=== PATIENT | female | born 1965 | race Two or more races ===

== ENCOUNTER 2022-11-29 09:06 | Day surgery (SDC) | payer MEDICAID ==
[~2022-11-29] VITALS: Ht 162.6 cm; Wt 78.1 kg
[~2022-11-29 09:06] MED LIST: NO HOME MEDS
[2022-11-29] MEDS ORDERED: CETI10TA19 PO (09:24)
[2022-11-29] MEDS ORDERED: TRAZ-251 PO (09:24)
[2022-11-29] MEDS ORDERED: IBUP-1985 PO (09:24)
[2022-11-29] MEDS ORDERED: METR70GE5 VG (09:24)
[2022-11-29] MEDS ORDERED: BACL-11 PO (09:24)
[2022-11-29 09:40] VITALS: BP 129/95
[2022-11-29] MEDS ORDERED: fentaNYL/PF 50MCG/1 ML 2ML syringe ONE (10:07)
[2022-11-29] MEDS ORDERED: MIDAZolam 1 MG/ML 5ML VIAL ONE (10:08)
[2022-11-29 10:35] VITALS: BP 110/71
[2022-11-29 10:45] VITALS: BP 119/74
[2022-11-29 10:55] VITALS: BP 124/77
[2022-11-29 11:05] VITALS: BP 107/70
== END 2022-11-29 11:10 | disposition home or self-care (01) ==
LOC: GI LAB 09:06
PROVIDERS: ATTEND Internal Medicine Gastroenterology
DX: Z12.11 Encounter for screening for malignant neoplasm of colon (principal); D12.3 Benign neoplasm of transverse colon; K62.6 Ulcer of anus and rectum; K57.30 Diverticulosis of large intestine without perforation or abscess without bleeding; K64.8 Other hemorrhoids; Z86.010 Personal history of colon polyps; Z80.0 Family history of malignant neoplasm of digestive organs
CPT/HCPCS: 45380; 45385; 99152; C1889; J2250; J3010; J7030; Z7512; 99153; A4620

== ENCOUNTER 2025-05-17 14:20 | Outpatient (CLI) | payer MEDICAID ==
[~2025-05-17 14:20] MED LIST changes: +BACL-11 PO; +CETI10TA19 PO; +IBUP600T52 PO; +METR70GE27 VG; +TRAZ-251 PO
--- NOTE | 2025-05-17 15:13 | ELECTROCARDIOGRAPH REPORT ---
[facility] Test Date: 2025-05-17 Test Time: 15:11:34 Pat Name: SRIRAM MASCORRO Department: [facility]-PRE-OP Patient ID: [facility]-[id number] Room: Gender: F Baker Paint: VENKATESH : 1965 Requested By: JEANINE ORTIZ Order Number: [id number] Reading MD: Dr. MATIAS Trujillo Measurements Intervals [place] Rate: 63 P: -22 TN: 109 QRS: 59 QRSD: 80 T: 56 QT: 422 QTc: 433 Interpretive Statements Sinus rhythm Short TN interval Electronically Signed On 05-17-2025 16:02:[address] MATIAS Trujillo Please click the below link to view image of tracing.
[2025-05-17] MEDS ORDERED: albuterol inhaler INH (15:31)
[2025-05-17] MEDS ORDERED: LEVO50TA8 PO (15:31)
[2025-05-17] MEDS ORDERED: DEC4T PO (15:31)
[2025-05-17 15:35] LABS: MEAN PLATELET VOLUME 8.6 FL (7.4-10.4); PRE OP HEMATOCRIT 37.5 % (35.0-45.0); PRE OP HEMOGLOBIN 12.7 g/dL (12.0-16.0); PRE OP PLATELET COUNT 205 X10'3 (140-440); PRE OP WHITE BLOOD COUNT 6.9 10'3 (4.8-10.8); RED CELL DISTRIBUTION WIDTH 13.0 % (11.5-14.5)
[2025-05-17 15:38] LABS: CREATININE 0.65 MG/DL (0.40-0.90); PRE OP ALT 35 U/L (30-65); PRE OP ANION GAP 5 (8-16); PRE OP AST 19 U/L (10-37); PRE OP BILIRUB, TOTAL 0.2 MG/DL (0.0-1.0); PRE OP GLUCOSE 120 MG/DL (70-104); PRE OP POTASSIUM 3.8 MMOL/L (3.4-5.1); PRE OP SODIUM 138 MMOL/L (135-145); TOTAL CARBON DIOXIDE 30.3 MMOL/L (24-32); eGFR > 90 ML/MIN
== END 2025-05-17 23:59 | disposition home or self-care (01) ==
LOC: LAB 14:20 → EDSTATUS 05-24 08:45
PROVIDERS: ATTEND Surgery
DX: Z01.818 Encounter for other preprocedural examination (principal); C50.912 Malignant neoplasm of unspecified site of left female breast; R94.31 Abnormal electrocardiogram [ECG] [EKG]; E03.9 Hypothyroidism, unspecified; J45.909 Unspecified asthma, uncomplicated; I25.2 Old myocardial infarction; G47.30 Sleep apnea, unspecified; Z87.440 Personal history of urinary (tract) infections; Z79.890 Hormone replacement therapy; Z79.899 Other long term (current) drug therapy; Z88.8 Allergy status to other drugs, medicaments and biological substances
CPT/HCPCS: 36415; 80053; 85025; 93005

== ENCOUNTER 2025-05-29 05:24 | Day surgery (SDC) | payer MEDICAID ==
[2025-05-29] VITALS (8 sets, daily range): BP systolic 124–142; BP diastolic 78–91; PULSE 62–72; RESP 10–16; TEMP 97.2; O2SAT 98–100
[~2025-05-29] VITALS: Ht 162.6 cm; Wt 79.0 kg
[~2025-05-29 05:24] MED LIST changes: -BACL-11 PO; -CETI10TA19 PO; +DEC4T PO; -IBUP600T52 PO; +LEVO50TA8 PO; -METR70GE27 VG; -NO HOME MEDS; -TRAZ-251 PO; +albuterol inhaler INH
[2025-05-29] MEDS: ceFAZolin 2gm/dext,iso 50mL 50 ML IV ONE (06:01)
[2025-05-29] MEDS: ringers solution, lacted 1,000 ML IV SCH (06:21)
[2025-05-29] MEDS ORDERED: BUPIVAcaine 2.5mg/ml inj 50ml vial (contains preservative) ONE (06:41)
[2025-05-29] MEDS ORDERED: methylene blue (5mg/ml) 50mg/10ml ampul IV ONE (06:41)
[2025-05-29] MEDS ORDERED: LIDOcaine 1% (10mg/ml)w/preservative inj. 20ml MDV ONE (06:41)
[2025-05-29] MEDS ORDERED: BUPIVACAINE liposomal/PF 13.3 MG/ML 10mL vial IM ONE (06:42)
[2025-05-29] MEDS ORDERED: BUPIVAcaine/PF 2.5mg/ml (0.25%) 10ml vial ONE (07:00)
[2025-05-29] MEDS ORDERED: fentaNYL/PF 50MCG/1 ML 2ML syringe ONE ×2 (07:53→08:48)
[2025-05-29] MEDS ORDERED: midazolam 1 mg/ML 2ml injection ONE (07:54)
[2025-05-29] MEDS ORDERED: ondansetron/PF 4mg/2ml inj ONE (08:01)
[2025-05-29] MEDS ORDERED: dexamethasone sod phosphate 4mg/ml inj. ONE (08:01)
[2025-05-29] MEDS ORDERED: propofol inj 20 ML IV ONE (08:01)
[2025-05-29] MEDS ORDERED: LIDOcaine 2% (20mg/ml) 5ml vial ONE (08:01)
[2025-05-29] MEDS ORDERED: acetaminophen 1,000mg/100ml IV 100 ML IV ONE (08:01)
[2025-05-29] MEDS ORDERED: morphine 4 MG/ML inj SYRINge IV PRN (08:25)
[2025-05-29] MEDS ORDERED: ringers solution, lacted 1,000 ML IV SCH (08:25)
[2025-05-29] MEDS ORDERED: ondansetron/PF 4mg/2ml inj IV PRN (08:25)
[2025-05-29] MEDS ORDERED: fentaNYL/PF 50MCG/1 ML 2ML syringe IV PRN ×2 (08:25)
[2025-05-29] MEDS ORDERED: hydrALAZINE 20mg/ml inj. IV PRN (08:25)
[2025-05-29] MEDS ORDERED: labetalol 20mg/4ml (5mg/ml) syringe IV PRN (08:25)
[2025-05-29] MEDS: methylene blue (5mg/ml) 50mg/10ml ampul IV ONE (09:21)
[2025-05-29] MEDS: BUPIVAcaine/PF 2.5mg/ml (0.25%) 10ml vial IJ ONE (09:22)
[2025-05-29] MEDS: LIDOcaine 1% 30ml preserv. free vial IJ ONE (09:22)
--- NOTE | 2025-05-29 10:09 | OPERATIVE REPORT ---
Operative Report Providers to CC CC: JEANINE ORTIZ DO ~ Date of Procedure: May 29, 2025 Pre-Operative Diagnosis: Left breast cancer completed neoadjuvant chemotherapy Post-Operative Diagnosis SAME as PRE-Op Procedure Performed Left breast wire localized lumpectomy with the LUBNA scoutt Left axillary sentinel lymph node biopsy Reading of specimen radiograph Surgeon: Dr. Jeanine Ortiz Tobacco Grader Clari Sanchez PA-C Anesthesiologist: Madhav Bernstein Type of Anesthesia: General Findings: 3 seconds axillary sentinel lymph nodes and two markers read out and identified on the specimen radiograph Complications None Prosthetics\Implants used: None Estimated Blood Loss: Less than 5 mL Specimen Removed: Left breast wire localized lumpectomy oriented short stitch superior, long suture lateral, double suture deep Left axillary sentinel lymph node #1 Count 4447, set left axillary sentinel lymph node #2 Count 1150 hot and blue, left axillary sentinel lymph node #3 Hot only to 92 Description of Procedure: Guilherme kemp was diagnosed with left triple negative breast cancer. She completed neoadjuvant chemotherapy at [facility]. She was seen by myself in the office and reexamined during her chemotherapy treatments. There was treatment effect based on follow up ultrasounds and noticeable decrease in size. She and I discussed her surgical options and she desires breast conservation. She had the nuclear medicine injection in the left breast yesterday evening. She was seen by myself in the preoperative holding area where the left breast was marked with my initials. Prior to surgery she had a LUBNA tracker placed in the left breast at [facility] advanced imaging in [facility]. She had an IV in place SCDs to lower extremities and antibiotics hanging at the bedside which was administered prior to the cut of surgery. She was taken to the OR suite and placed on the table in the supine position with the arms extended general anesthesia was administered by the anesthesiologist. I scanned the left breast with the gamma probe and identified hot signal at the perimeter of the areola in the left breast and at the base of the axilla. 3 mm of methylene blue dye was injected at the 3 o'clock position subareolar massaged for 4 minutes. I scanned the breast with the LUBNA probe to identify a signal in the upper inner breast approximately 11:00, 9 cm from the nipple. I marked the breast and the axilla. The patient was prepped and draped in a sterile fashion a time-out was performed and agreed upon. I may proposed incisions in the axillary space and the upper breast with a marking pen. 1% lidocaine was injected in both sites. I made the breast incision with a 15 blade and dissected through the deep dermal layer with the cutting on the cautery. The flaps were elevated with Suzy retractors. I used the LUBNA probe to guide the dissection. I switched to the Leiva retractors and dissected around the signal superior inferior medial and laterally and then posteriorly down to the pectoralis fascia. The specimen was completely excised and removed from the cavity and oriented with short stitch superior, long suture lateral, double suture deep placed in the specimen radiograph board and into the fact that trauma machine. The specimen was imaged in two views and the tracker and the marker were identified in the center of the specimen. The specimen was placed in formalin for permanent evaluation. The cavity was irrigated copiously and hemostasis was achieved with Bovie electrocautery. The medial and lateral tissue flaps were released with cautery so that I could feel acquired defect with breast tissue. I turned my attention to the left axillary sentinel lymph node biopsy. The incision was made with a 15 blade in the lower axillary space. I dissected through the deep dermal layer with the cutting on the cautery the flaps were elevated with Suzy retractors and I dissected down to the axillary fascia. I switched to Leiva retractors. Dissected through the axillary fascia. The 1st lymph node was identified it was hot only I grasped it with a tonsil clamp and excised it with the LigaSure. The count was 447 outside of the patient's body. It was placed in formalin. Two additional lymph nodes were identified with a signal one was hot and blue the 3rd one was hot only. The counts were 1150 hot and blue and 292 hot only. Cavity was copiously irrigated and hemostasis was achieved with Bovie electrocautery. The axillary fascia was reapproximated with 3-0 Vicryl interrupted suture in the deep dermal layer was closed with 3-0 Vicryl interrupted suture. The skin was closed with a 2-0 Monocryl Stratafix. I turned my attention to the closure of the breast cavity. The cavity was approximated medially and laterally with the 3-0 mirian Vicryl suture. The deep dermal layer was closed with 3-0 Vicryl interrupted sutures and the skin with a two 0 Monocryl Stratafix. Dermabond glue was placed over both incisions and 0.25% Marcaine was injected at both sites. Sterile dressings were placed on both incisions and a balled pressure dressing to the left axilla. A breast binder was placed on the patient she was taken to recovery in stable condition without complication. All needle sponge counts were correct. Counts repoted as correct: Yes JEANINE ORTIZ DO May 29, 2025 10:09
== END 2025-05-29 10:34 | disposition home or self-care (01) ==
LOC: PAS 05:24
PROVIDERS: ATTEND Surgery
DX: C50.212 Malignant neoplasm of upper-inner quadrant of left female breast (principal); J45.909 Unspecified asthma, uncomplicated; I25.2 Old myocardial infarction; R73.09 Other abnormal glucose; Z98.890 Other specified postprocedural states; Z78.0 Asymptomatic menopausal state; Z92.21 Personal history of antineoplastic chemotherapy
CPT/HCPCS: 19301; 38525; 76098; 82948; J0131; J1100; J2003; J2250; J2405; J2704; J3010; J3490; J7030; J7120; Q9968; Z7506; Z7508; Z7512; A4215; A4618; A6253; A6258; A7000; J0666